=== PATIENT | male | born 1945 | race Caucasian/White ===

== ENCOUNTER 2019-01-26 18:00 | Emergency (ER) | payer OTHER ==
[~2019-01-26] VITALS: Ht 154.9 cm; Wt 96.2 kg
[2019-01-26 18:04] VITALS: BP 164/63
== END 2019-01-26 20:04 | disposition home or self-care (01) ==
LOC: ER 18:02
DX: S09.8XXA Other specified injuries of head, initial encounter (principal); W01.0XXA Fall on same level from slipping, tripping and stumbling without subsequent striking against object, initial encounter; Y93.89 Activity, other specified; Y92.89 Other specified places as the place of occurrence of the external cause; Y99.8 Other external cause status
CPT/HCPCS: 70450; 72125